=== PATIENT | female | born 1970 | race Caucasian/White ===

== ENCOUNTER → 2016-06-07 | Outpatient (CLI) | payer BC ==
[2016-06-07 08:20] LABS: HEMOGLOBIN 14.1 gm/dl (12.3-15.3); RED BLOOD COUNT 4.58 M/UL (4.00-5.10); WHITE BLOOD COUNT 6.9 K/UL (4.5-11.0)
[2016-06-07 08:37] LABS: BUN/CREATININE RATIO 30 (0-10)
== END ==
LOC: LAB 06:48
PROVIDERS: Nurse Practitioner
DX: R53.83 Other fatigue (principal); R59.9 Enlarged lymph nodes, unspecified
CPT/HCPCS: 36415; 80053; 80061; 84436; 84443; 84480; 85025; 86140

== ENCOUNTER → 2020-07-28 | Outpatient (CLI) | payer BC ==
[2020-07-28 07:43] LABS: HEMOGLOBIN 13.4 gm/dl (12.3-15.3); RED BLOOD COUNT 4.6 M/UL (4.00-5.10); WHITE BLOOD COUNT 5.3 K/UL (4.5-11.0)
[2020-07-28 08:17] LABS: BUN/CREATININE RATIO 30 (0-10)
[2020-07-29 07:11] LABS: VITAMIN D, 25-HYDROXY 26.7 ng/mL (30.0-100.0)
[2020-07-29 08:13] LABS: THYROXINE (T4) 7.1 ug/dL (4.5-12.0)
== END ==
LOC: LAB 06:41
PROVIDERS: Nurse Practitioner
DX: I10 Essential (primary) hypertension (principal); E78.5 Hyperlipidemia, unspecified; M54.5 Low back pain; E55.9 Vitamin D deficiency, unspecified; E03.9 Hypothyroidism, unspecified
CPT/HCPCS: 36415; 80053; 80061; 81001; 84436; 84443; 84480; 85025

== ENCOUNTER → 2021-02-14 | Outpatient (CLI) | payer BC ==
[2021-02-14 08:38] LABS: HEMOGLOBIN 13.6 gm/dl (12.3-15.3); RED BLOOD COUNT 4.51 M/UL (4.00-5.10); WHITE BLOOD COUNT 5.8 K/UL (4.5-11.0)
[2021-02-14 09:02] LABS: BUN/CREATININE RATIO 21 (0-10)
[2021-02-15 08:13] LABS: RHEUMATOID ARTHRITIS FACTOR <10.0 IU/mL (<14.0); THYROXINE (T4) 5.7 ug/dL (4.5-12.0); TRIIODOTHYRONINE (T3) 124 ng/dL (71-180); VITAMIN D, 25-HYDROXY 24.3 ng/mL (30.0-100.0)
== END ==
LOC: LAB 08:01
PROVIDERS: Nurse Practitioner
DX: I10 Essential (primary) hypertension (principal); E78.5 Hyperlipidemia, unspecified; M54.50 Low back pain, unspecified; R53.83 Other fatigue; E55.9 Vitamin D deficiency, unspecified; M25.50 Pain in unspecified joint; M06.9 Rheumatoid arthritis, unspecified; R76.0 Raised antibody titer
CPT/HCPCS: 36415; 80053; 80061; 81001; 84436; 84443; 84480; 85025; 85652; 86038; 86140; 86431

== ENCOUNTER → 2021-05-04 | Outpatient (CLI) | payer BC | LOC: LAB 08:18 | DX: E78.5 Hyperlipidemia, unspecified (principal); E55.9 Vitamin D deficiency, unspecified | CPT/HCPCS: 36415; 80061 ==